=== PATIENT | female | born 1945 | race Caucasian/White ===

== ENCOUNTER → 2019-07-13 09:10 | Outpatient (BNVA) | payer MEDICARE, SELFPAY | PROVIDERS: Family Provider Nurse Practitioner; PCP Nurse Practitioner; Visit Provider Nurse Practitioner | DX: I10 Essential (primary) hypertension (principal); I69.30 Unspecified sequelae of cerebral infarction; E78.2 Mixed hyperlipidemia; L03.012 Cellulitis of left finger; M79.89 Other specified soft tissue disorders; M19.042 Primary osteoarthritis, left hand | CPT/HCPCS: 73130; 80053; 80061; 81003 ==

== ENCOUNTER 2019-07-22 10:12 | Outpatient (CLI) | payer MEDICARE, SELFPAY ==
[2019-07-22 10:55] LABS: Creatinine Urine, Random 61 mg/dL (28-217)
[2019-07-22 11:00] LABS: Microalbum Creatinine Ratio Ur 16 mg/dL (0-20)
[2019-07-22 11:01] LABS: Microalbumin Random Urine < 1 ug/dL (0-20)
== END 2019-07-22 10:13 | disposition home or self-care (01) ==
LOC: LAB 10:17
PROVIDERS: Family Provider Nurse Practitioner; PCP Nurse Practitioner; Visit Provider Internal Medicine Nephrology
DX: N18.3 Chronic kidney disease, stage 3 (moderate) (principal)
CPT/HCPCS: 82044

== ENCOUNTER → 2019-08-18 10:16 | Outpatient (BNVA) | payer MEDICARE, SELFPAY | PROVIDERS: Family Provider Nurse Practitioner; PCP Nurse Practitioner; Visit Provider Internal Medicine Nephrology | DX: N18.3 Chronic kidney disease, stage 3 (moderate) (principal) | CPT/HCPCS: 80069; 82310; 83970 ==

== ENCOUNTER → 2019-11-24 11:34 | Outpatient (BNVA) | payer MEDICARE, SELFPAY | PROVIDERS: Family Provider Nurse Practitioner; PCP Nurse Practitioner; Visit Provider Internal Medicine Nephrology | DX: N18.3 Chronic kidney disease, stage 3 (moderate) (principal) | CPT/HCPCS: 80069; 82044; 82310; 83970; 85025 ==

== ENCOUNTER → 2019-12-28 10:31 | Outpatient (BNVA) | payer MEDICARE, SELFPAY | PROVIDERS: Family Provider Nurse Practitioner; PCP Nurse Practitioner; Visit Provider Nurse Practitioner | DX: Z12.39 Encounter for other screening for malignant neoplasm of breast (principal); Z78.0 Asymptomatic menopausal state; I10 Essential (primary) hypertension; Z00.00 Encounter for general adult medical examination without abnormal findings; E78.2 Mixed hyperlipidemia; M15.0 Primary generalized (osteo)arthritis | CPT/HCPCS: 80053; 80061 ==

== ENCOUNTER 2020-02-09 12:49 | Outpatient (CLI) | payer MEDICARE, SELFPAY ==
--- NOTE | 2020-02-09 13:00 | MM_ITS ---
WS: [id number] SCREENING DIGITAL MAMMOGRAM WITH CAD HISTORY: Screening exam. COMPARISON: 10/17/2017, 04/08/2017 and 12/10/2005 Bilateral CC and MLO views submitted. Computer aided detection analyzed. Breast composition: There are scattered areas of fibroglandular density. Nodular asymmetry measuring 6 mm in the anterior LEFT breast behind the nipple. There are additional benign appearing calcifications. Inverted LEFT nipple is not a new finding. Benign calcification RIGH T breast. MM/[place] [id number] IMPRESSION: BI-RADS: 0-Incomplete: Need additional imaging evaluation FOLLOW UP: Need Additional Imaging LEFT breast: Spot compression views (CC and MLO). True ML. Ultrasound to follow if abnormality persists.
--- NOTE | 2020-02-09 13:46 | XR_ITS ---
WS: [id number] SCREENING DEXA SCAN [employer] CLINICAL INFORMATION: screen used prednisone in the past COMPARISON: None. FINDINGS: The L1-L4 bone mineral density measures 1.196 g/cm2. This corresponds to a T score score of 0.1 and Z score of 1.4. Left femoral neck bone mineral density measures 0.806 g/cm2. This corresponds to a T score of -1.6 an d Z score of -0.3. Right femoral neck bone mineral density measures 0.770 g/cm2. This corresponds to a T score -1.9of an d Z score of -0.6. Mean femoral neck bone mineral density measures 0.788 g/cm2. This corresponds to a T score of -1.7 an d Z score of -0.5. XR/XR DEXA axial skeleton* [id number] IMPRESSION: Osteopenia Patient's FRAX calculated 10 year probability for major osteoporotic fracture i s 14.1 % and osteoporotic hip fracture is 3.6%.
== END 2020-02-09 12:50 | disposition home or self-care (01) ==
LOC: RADSHAW 12:52
PROVIDERS: PCP Nurse Practitioner; Visit Provider Nurse Practitioner
DX: Z12.31 Encounter for screening mammogram for malignant neoplasm of breast (principal); Z78.0 Asymptomatic menopausal state; R92.1 Mammographic calcification found on diagnostic imaging of breast; M85.89 Other specified disorders of bone density and structure, multiple sites
CPT/HCPCS: 77067; 77080

== ENCOUNTER 2020-03-03 10:11 | Outpatient (CLI) | payer MEDICARE, SELFPAY ==
--- NOTE | 2020-03-03 10:30 | MM_ITS ---
WS: [id number] ADDITIONAL VIEWS LEFT MAMMOGRAM LEFT BREAST ULTRASOUND HISTORY: abnormal mammo COMPARISON: 02/09/2020 and 10/17/2017 LEFT MAMMOGRAM: Spot compression views and true ML. Asymmetries in the anterior LEFT breast become less apparent with additional spot compression views. Increased asymmetry persists in the LEFT MLO projection. Posterior to the nipple and ultrasound will be obtained. LEFT BREAST ULTRASOUND 2-D and color Doppler imaging submitted. Ultrasound directed posterior to the nipple. Patient has a known chronic nipple retraction. There are several dilated ducts posterior to the nipple. That may explain the abnormality seen on mammogram. T here are no solid masses. MM/[place] [id number] IMPRESSION: BI-RADS: 2-Benign FOLLOW UP: 1 Year Follow-up
--- NOTE | 2020-03-03 11:00 | US_ITS ---
WS: [id number] ADDITIONAL VIEWS LEFT MAMMOGRAM LEFT BREAST ULTRASOUND HISTORY: abnormal mammo COMPARISON: 02/09/2020 and 10/17/2017 LEFT MAMMOGRAM: Spot compression views and true ML. Asymmetries in the anterior LEFT breast become less apparent with additional spot compression views. Increased asymmetry persists in the LEFT MLO projection. Posterior to the nipple and ultrasound will be obtained. LEFT BREAST ULTRASOUND 2-D and color Doppler imaging submitted. Ultrasound directed posterior to the nipple. Patient has a known chronic nipple retraction. There are several dilated ducts posterior to the nipple. That may explain the abnormality seen on mammogram. T here are no solid masses. US/US breast LT limited* [id number] IMPRESSION: BI-RADS: 2-Benign FOLLOW UP: 1 Year Follow-up
== END 2020-03-03 10:12 | disposition home or self-care (01) ==
LOC: RADSHAW 10:16
PROVIDERS: PCP Nurse Practitioner; Visit Provider Nurse Practitioner
DX: R92.8 Other abnormal and inconclusive findings on diagnostic imaging of breast (principal); N64.9 Disorder of breast, unspecified
CPT/HCPCS: 76642; 77065

== ENCOUNTER → 2020-05-30 12:25 | Outpatient (BNVA) | payer MEDICARE, SELFPAY | PROVIDERS: PCP Nurse Practitioner; Visit Provider Nurse Practitioner | DX: I10 Essential (primary) hypertension (principal); E78.2 Mixed hyperlipidemia; I69.30 Unspecified sequelae of cerebral infarction | CPT/HCPCS: 80053; 85025 ==

== ENCOUNTER 2020-08-05 12:34 | Emergency (ER) | payer MEDICARE, SELFPAY ==
[2020-08-05 12:44] VITALS: BP 110/71; PULSE 57; RESP 15; TEMP 36.4; O2SAT 100; BMI 32.5
--- NOTE | 2020-08-05 12:46 | ECG_ITS ---
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: : 1945 Requested By: Anish Nielsen Order Number: [id number] Reading MD: TRINI VELA Measurements Intervals [place] Rate: 57 P: 60 TN: 160 QRS: -36 QRSD: 89 T: 12 QT: 431 QTc: 421 Interpretive Statements SINUS BRADYCARDIA LEFT AXIS DEVIATION [QRS AXIS < -30] MINIMAL VOLTAGE CRITERIA FOR LVH, CONSIDER NORMAL VARIANT [MEETS CRITERIA IN ONE OF: R(aVL), S(V1), R(V5), R(V5/V6)+S(V1)] No previous ECG available for comparison Electronically Signed On 08-05-2020 19:23:56 AUTOMOBILE SERVICE WRITER by TRINI VELA [id number]
--- NOTE | 2020-08-05 12:47 | XR_ITS ---
WS: [id number] Portable AP supine chest, 08/05/2020 Clinical Data: dyspnea/cough Comparison: None. Findings: No nodules, masses or effusions are seen. The heart is normal. The pulmonary vascularity is not increased. No pneumonia or pneumothorax is seen. The aortic arch and descending aorta show minim al calcification and tortuosity. XR/XR chest 1V portable [id number] Impression: Atherosclerosis.
--- NOTE | 2020-08-05 12:47 | CT_ITS ---
WS: [id number] CT HEAD TECHNIQUE: Noncontrast CT of the head obtained from the skullbase to the vertex. CLINICAL INFORMATION: trauma/LOC COMPARISON: None. DLP: 901.[address] scans at [facility] use at least one of these dose optimization techniques: automat ed exposure control; mA and/or kV adjustment per patient size (includes targeted exams where dose is matched to clinical indication); or iterative reconstruction. FINDINGS: Increased attenuation serpiginous subarachnoid hemorrhage involving the left greater than right front al lobes extending into the sulci on the left. No significant mass effect or midline shift. No intrav entricular hemorrhage. No visualized extra-axial fluid collections. Chronic lacunar infarct in the lina. No visualized calvarial fractures. Opacification left maxillary sinus with inspissated secretions. Mastoid air cells and right maxillary sinus are well aerated. CT/CT head wo con* [id number] IMPRESSION: 1. Small amount of bilateral frontal subarachnoid hemorrhage left greater than right extending into the sulci left frontal lobe. No significant mass effect o r midline shift. 2. No hydrocephalus. No intraventricular hemorrhage. 3. No extra-axial fluid collections. 4. No calvarial fractures. Notified Anish Prabhakar DO at 08/05/2020 1:27 PM.
--- NOTE | 2020-08-05 12:53 | PC.NURSE ---
C-collar placed on Pt during triage assessment
--- NOTE | 2020-08-05 12:56 | CT_ITS ---
WS: [id number] CT CERVICAL TRAUMA TECHNIQUE: Noncontrast CT of the cervical spine with coronal and sagittal reformatted images. CLINICAL INFORMATION: pain after fall COMPARISON: None. DLP: 598.[address] scans at [facility] use at least one of these dose optimization techniques: automat ed exposure control; mA and/or kV adjustment per patient size (includes targeted exams where dose is matched to clinical indication); or iterative reconstruction. FINDINGS: Nondisplaced right second rib fracture at the costovertebral junction. Moderate spondylitic changes. Slight anterolisthesis C5 on C6. Disc space narrowing mid cervical spin e worse at C4-C5 C6-C7 and C7-T1. Straightening of the normal cervical lordosis. Normal craniocervical junction. Normal C1-C2 articulat ion. Dens is normal in appearance. Normal occipital condyles. No high-grade spinal canal narrowing. N ormal C1 ring. Normal prevertebral soft tissues. Mastoids air cells are well aerated. CT/CT cervical spin wo con* [id number] IMPRESSION: 1. Nondisplaced right second rib fracture at the costovertebral junction. 2. No other visualized fractures.
--- NOTE | 2020-08-05 12:56 | XR_ITS ---
WS: [id number] Right shoulder, 3 views, 08/05/2020 Clinical Data: pain Comparison: None. Findings: No fractures or dislocations are seen. There is osteoarthritic change of the inferior right glenoid r im. The AC joint is normal. The adjacent right clavicle, right scapula and ribs are normal. The soft tissues are unremarkable. There is elevation of the right humeral head and it lies adjacent to the acromion process. This can b e seen with a torn rotator cuff. XR/XR shoulder RT min 2V* [id number] Impression: 1. Moderate osteoarthritis of the right shoulder. 2. Elevation of the right humeral head which can be seen with a torn rotator cu ff.
--- NOTE | 2020-08-05 12:56 | CT_ITS ---
WS: [id number] CT LUMBAR SPINE TECHNIQUE: Noncontrast CT of the lumbar spine with coronal and sagittal reformatted images. CLINICAL INFORMATION: pain COMPARISON: None. DLP: 1743.[address] scans at [facility] use at least one of these dose optimization techniques: automat ed exposure control; mA and/or kV adjustment per patient size (includes targeted exams where dose is matched to clinical indication); or iterative reconstruction. FINDINGS: Lumbar curve convex right. No acute compression fractures. Advanced degenerative disc disease through out the lumbar spine with multilevel disc space narrowing. Grade 1 anterolisthesis L4 on L5. Moderate to severe central canal stenosis L3-L4 and L4-L5 due to disc bulging with facet arthropathy ligament flavum hypertrophy. Advanced facet arthropathy lower lumbar spine. Normal transverse processes. Normal visualized abdomin al aorta. Peripelvic left renal cyst. CT/CT lumbar spine wo con* [id number] IMPRESSION: 1. Mild lumbar curve. No acute compression. Multilevel degenerative disc disea se. 2. Grade 1 anterolisthesis L4 on L5. 3. Moderate to severe central canal stenosis L3-L4 L4-L5 due to disc bulging w ith facet arthropathy and ligamentum flavum hypertrophy. 4. No visualized acute fractures. Attempted notification Anish Prabhakar DO at 08/05/2020 1:48 PM. .
--- NOTE | 2020-08-05 12:56 | XR_ITS ---
WS: [id number] Thoracic spine, 3 views, 08/05/2020 Clinical Data: pain Comparison: None. Findings: No compression fractures are seen. The disc heights are normal. There is osteoarthritis of all the thoracic vertebral bodies. There is a levoscoliosis of the lower t horacic spine. The paravertebral regions are not remarkable. XR/XR thoracic spine 3V* [id number] Impression: Osteoarthritis of the thoracic vertebral bodies and lower thoracic levoscoliosi s.
--- NOTE | 2020-08-05 13:25 | ED_ITS ---
HPI - Fall General: Chief Complaint: Fall Stated Complaint: fall down stairs, LOC, head injury Time Seen by Provider: 08/05/20 12:36 History of Present Illness: HPI Narrative: 75-year-old female presents to the emergency room from home. She relates having fallen down stairs about 4-[address] and hit her head. She thought she had stumbled although she cannot recall being entire events fully. She was unconscious for an unknown length of time 3 years ago the patient had a CVA. She has significant bruising on the left frontal scalp. She is otherwise awake and alert and gives a good history she denies any vomiting since episodes not had any chest pain. MD complaint: fall Onset (ago): minute(s) Fall from: standing and down stairs (#) (4-5) Fall witnessed: no Place fall occurred: home Loss of consciousness: Yes Length of LOC: minutes(s) Prolonged down time: minute(s) Symptoms prior to fall: none Location of injury: head, neck and back Severity: moderate Associated symptoms-after fall: Denies abdominal pain, chest pain, confusion, difficulty walking, headache(s), hematuria, lightheadedness, neck pain, numbness, short of breath, vertigo or weakness Review of Systems Const: Denies: fever(s), chills, body aches, change in appetite, fatigue or malaise ENMT: Denies: throat pain, ear or mastoid pain, nasal discharge or nasal michele estion Card: Denies: chest pain or lightheadedness Resp: Denies: dyspnea, productive cough or non-productive cough GI: Denies: abdominal pain : Denies: hematuria Musc: Denies: neck pain Skin/Breast: Denies: rash or pruritus Neuro: Denies: headache(s), difficulty walking, vertigo or confusion PFS ED PFSH: Medical History DDD (degenerative disc disease), lumbar History of cerebrovascular accident (CVA) with residual deficit Hypertension Mixed hyperlipidemia Osteoarthritis Renal insufficiency Surgical History History of cataract surgery bilateral History of colonoscopy 2018 History of corneal transplant Bilateral History of knee replacement Left knee 2009 History of tubal ligation Family History Other Heart disease Hypertension Social History Smoking and tobacco status: never smoked Second hand smoke exposure: No Smoking risk assessment/counseling performed?: No Alcohol intake: never Desire information about alcohol rehabilitation?: No Counseling given: No Desire information about substance/drug rehabilitation?: No Counseling given: No Caregiver/support person: No Lives independently: Yes Housing: House Marital status: History of recent travel: No Current gender identity: Female Physical Exam Const: COMMON NORMALS: no acute distress GENERAL APPEARANCE: cooperative and comfortable ORIENTATION/CONSCIOUSNESS: Yes awake, Yes oriented to person, Yes oriented to place and Yes oriented to time HENMT: COMMON NORMALS: normocephalic and hearing grossly normal bilaterally HEAD & SCALP: normocephalic OTHER: Significant ecchymosis over the right forehead. Eye: COMMON NORMALS: Equal, round and reactive pupils present, EOMs intact bilaterally, conjunctivae normal and no scleral icterus CONJUNCTIVA: Yes conjunctivae normal PUPIL: Yes Equal, round and reactive pupils present Neck/C-Spine: COMMON NORMALS: no JVD Lymph: LYMPHATIC: no lymphadenopathy noted and no lymphedema noted Resp: COMMON NORMALS: normal respiratory effort, No retractions, No use of accessory muscles and clear to auscultation bilaterally AUSCULTATION: clear to auscultation bilaterally Cardio: COMMON NORMALS: no JVD, regular rate, regular rhythm and No murmurs present (Cardio) RATE: regular rate RHYTHM: regular rhythm GI: COMMON NORMALS: Soft to palpation and No hepatosplenomegaly present AUSCULTATION: Yes normoactive bowel sounds PALPATION: Yes Soft to palpation, No Tenderness to palpation present (GI), No Guarding due to palpation present (GI) and Yes No hepatosplenomegaly present Extremity: COMMON NORMALS: normal to inspection, capillary refill normal, no clubbing, cyanosis or edema, no calf tenderness and no pedal edema Neuro: SENSORIUM/ORIENTATION: Yes oriented to person, Yes oriented to place and Yes oriented to time Skin: COMMON NORMALS: no rashes or lesions noted GENERAL SKIN EXAM: no rashes or lesions noted Course Vital Signs: Vital signs: Vital Signs Temperature 97.6 F 08/05/20 12:44 Pulse Rate 57 L 08/05/20 12:44 Respiratory Rate 15 08/05/20 12:44 Blood Pressure 110/71 08/05/20 12:44 Pulse Oximetry 100 08/05/20 12:44 MDM - Fall MDM Narrative: Medical decision making narrative: Suspect patient had a spontaneous subarachnoid which precipitated the fall. In either event she does currently have a subarachnoid to have to be transferred since we do not have neurosurgery available at our facility. Also concerning the first rib fracture with the fall represents significant trauma. Discussed with the patient the family they are agreeable transfer to [facility] at their request have discussed with the ER doc and do an ER to ER transfer. Discharge Plan Discharge Patient Disposition: Transfer to ED Clinical Impression: Subarachnoid hemorrhage, Fracture of one rib of right side Condition: Stable Prescriptions: No Action aspirin 325 mg tablet 325 mg PO DAILY RF: 0 fluorometholone 0.1 % drops,suspension 1 drop ophthalmic (eye) Q6H RF: 0 lidocaine 5 % adhesive patch,medicated 1 patch TOPICAL DAILY RF: 0 aspirin [Aspirin Childrens] 81 mg tablet,chewable 81 mg PO DAILY RF: 0 mupirocin 2 % ointment 1 applic TOPICAL TID PRN (Reason: infection) Qty: 22 RF: 0 amlodipine 2.5 mg tablet 2.5 mg PO DAILY Qty: 90 RF: 0 valsartan [Diovan] 320 mg tablet 320 mg PO DAILY Qty: 90 RF: 0 metoprolol succinate [Toprol XL] 50 mg tablet extended release 24 hr 50 mg PO DAILY Qty: 90 RF: 0 atorvastatin [Lipitor] 20 mg tablet 20 mg PO DAILY Qty: 90 RF: 1 citalopram 20 mg tablet 20 mg PO DAILY Qty: 90 RF: 1 furosemide [Lasix] 20 mg tablet 20 mg PO DAILY Qty: 90 RF: 1 Referrals: Ted Rosario FNP-C [Primary Care Provider] - Coding Level of Care Code ED Secure Software Assessor for Farooq Appiah
[2020-08-05] MEDS: ondansetron 2 mg/ML SDV 2 mL 4 MG IVP (13:42)
[2020-08-05 14:44] LABS: Basophils % 0.3 %; Eosinophils # 0.1 10^3/uL (0.0-0.8); Eosinophils % 0.7 %; Hemoglobin 12.1 g/dL (11.5-15.3); Lymphocytes # 0.8 10^3/uL (0.8-4.8); Lymphocytes % 5.7 %; Mean Corpuscular HGB Conc 32.7 g/dL (30.0-36.0); Mean Corpuscular Hemoglobin 33.7 pg (28.0-34.0); Mean Corpuscular Volume 103.1 fL (81-99); Mean Platelet Volume 8.8 fL (7.4-10.4); Monocytes # 0.7 10^3/uL (0.2-0.9); Monocytes % 5.2 %; Neutrophils # 12.19 10^3/uL (1.8-7.7); Neutrophils % 87.7 %; Nucleated Red Blood Cells % 0 %; Platelet Count 192 10^3/cmm (130-400); Red Blood Count 3.59 10^6/uL (4.1-5.3); Red Cell Distribution Width 12.6 % (12.1-15.1); White Blood Count 13.9 10^3/uL (4.0-10.0)
[2020-08-05 14:52] LABS: Ketone (Acetest) Serum Negative (Negative)
[2020-08-05 14:57] VITALS: BP 112/64; PULSE 55; RESP 18; O2SAT 98
[2020-08-05 14:59] LABS: Lactic Sepsis W/Reflex 1.7 mmol/L (0.5-2.2)
[2020-08-05 15:00] LABS: Alanine Aminotransferase 35 U/L (0-33); Albumin Level 4.1 g/dL (3.5-5.2); Alkaline Phosphatase 69 IU/L (35-105); Anion Gap 15.7 (5-19); Aspartate Amino Transferase 59 U/L (0-32); Blood Urea Nitrogen 22 mg/dL (8-23); Calcium 8.4 mg/dL (8.5-10.5); Carbon Dioxide 23 mmol/L (22-29); Chloride 101 mmol/L (98-107); Globulin 2.7 g/dL (1.3-4.6); Glucose 113 mg/dL (65-115); Osmolality Calculated 284 mOsm/kg (285-295); Potassium 4.7 mmol/L (3.5-5.1); Sodium 135 mmol/L (136-145); Total Bilirubin 0.5 mg/dL (0.15-1.2); Total Protein 6.8 g/dL (6.6-8.7)
[2020-08-05 15:02] LABS: Creatine Phosphokinase 1184 U/L (26-192)
[2020-08-05] MEDS: morphine 4 mg/mL SDV 1 mL IVP (15:05)
[2020-08-05 15:25] VITALS: BP 112/64; PULSE 55; RESP 18; O2SAT 98
[2020-08-05 15:27] LABS: Add Urine Microscopic? YES; Bilirubin Urine Neg (Negative); Blood Urine 2+ (Negative); Glucose Urine UA Norm (Normal); Ketones Urine Negative (Negative); Leukocyte Esterase Urine Negative (Negative); Nitrate Urine Negative (Negative); Protein Urine Neg (Negative); Urine Appearance Hazy (CLEAR); Urine Color Yellow (Yellow); Urobilinogen Urine Norm (Negative); pH Urine 5 (5-7)
[2020-08-05 15:50] LABS: RBC Urine 0-4 /hpf (0-2); WBC Urine 0-4 /hpf (0-5)
[2020-08-05 15:51] LABS: Add Urine Culture? No; Amorphous Sediment Urine TRACE /hpf; Bacteria Urine 1+ /hpf; Coarse Granular Casts Urine 0-4 /lpf; Hyaline Casts Urine 25-40 /lpf; Mucus Urine 2+ /hpf; Squamous Epithelial Cell Urine 0-4 /hpf (0-5)
== END 2020-08-05 15:26 ==
PROVIDERS: Emergency Provider Family Medicine; PCP Nurse Practitioner
DX: S06.6X9A Traumatic subarachnoid hemorrhage with loss of consciousness of unspecified duration, initial encounter (principal); S22.31XA Fracture of one rib, right side, initial encounter for closed fracture; W10.8XXA Fall (on) (from) other stairs and steps, initial encounter; Z79.82 Long term (current) use of aspirin; Z86.73 Personal history of transient ischemic attack (TIA), and cerebral infarction without residual deficits; I10 Essential (primary) hypertension; E78.5 Hyperlipidemia, unspecified; E78.2 Mixed hyperlipidemia
CPT/HCPCS: 70450; 71045; 72072; 72125; 72131; 73030; 80053; 81001; 82009; 82550; 83605; 85025; 93005; 96374; 96375; 99285; J2270; J2405

== ENCOUNTER → 2020-09-05 11:26 | Outpatient (BNVA) | payer MEDICARE, SELFPAY | PROVIDERS: PCP Nurse Practitioner; Visit Provider Nurse Practitioner | DX: I10 Essential (primary) hypertension (principal) | CPT/HCPCS: 80053; 85025 ==

== ENCOUNTER → 2020-11-22 08:27 | Outpatient (BNVA) | payer MEDICARE, SELFPAY | PROVIDERS: PCP Nurse Practitioner; Visit Provider Nurse Practitioner | DX: E78.2 Mixed hyperlipidemia (principal); I69.30 Unspecified sequelae of cerebral infarction; I10 Essential (primary) hypertension; E55.9 Vitamin D deficiency, unspecified | CPT/HCPCS: 80053; 80061; 82306; 82607; 84443 ==

== ENCOUNTER → 2021-04-13 09:40 | Outpatient (BNVA) | payer MEDICARE, SELFPAY | PROVIDERS: PCP Nurse Practitioner; Visit Provider Nurse Practitioner | DX: I10 Essential (primary) hypertension (principal) | CPT/HCPCS: 80053; 80061; 84443 ==

== ENCOUNTER 2021-07-10 07:04 | Outpatient (CLI) | payer MEDICARE, SELFPAY ==
--- NOTE | 2021-07-10 07:30 | MM_ITS ---
WS: [id number] BILATERAL DIGITAL SCREENING MAMMOGRAPHY WITH CAD CLINICAL INFORMATION: Z12.39 - Encounter for other screening for malignant neop... HISTORY: Screening mammogram. No current complaints. COMPARISON: February 09, 2020 TECHNIQUE: Bilateral CC and MLO views. FINDINGS: LEFT nipple inversion Scattered fibroglandular densities bilaterally. Stable punctate and secretory calcifications. Asymmet melisa densities about the areola are unchanged from previous studies. Ductal ectasia. No suspicious foc al mass, asymmetry, calcifications, or architectural distortion. No evidence of malignancy. MM/[place] [id number] IMPRESSION: BI-RADS: 2-Benign FOLLOW UP: 1 Year Follow-up Recommend return to annual screening mammography.
== END 2021-07-10 07:05 | disposition home or self-care (01) ==
LOC: RADSHAW 07:05
PROVIDERS: PCP Nurse Practitioner; Visit Provider Nurse Practitioner
DX: Z12.31 Encounter for screening mammogram for malignant neoplasm of breast (principal)
CPT/HCPCS: 77067

== ENCOUNTER → 2021-10-11 08:37 | Outpatient (BNVA) | payer MEDICARE, SELFPAY | PROVIDERS: PCP Nurse Practitioner; Visit Provider Nurse Practitioner | DX: E03.9 Hypothyroidism, unspecified (principal); I10 Essential (primary) hypertension; E55.9 Vitamin D deficiency, unspecified; E53.8 Deficiency of other specified B group vitamins | CPT/HCPCS: 80053; 80061; 82306; 82607; 84443; 85025 ==

== ENCOUNTER → 2022-04-05 08:32 | Outpatient (BNVA) | payer MEDICARE, SELFPAY | PROVIDERS: PCP Nurse Practitioner; Visit Provider Nurse Practitioner | DX: I10 Essential (primary) hypertension (principal); E78.2 Mixed hyperlipidemia; I69.30 Unspecified sequelae of cerebral infarction; E03.9 Hypothyroidism, unspecified; E55.9 Vitamin D deficiency, unspecified | CPT/HCPCS: 80053; 80061; 81000; 84443; 85025 ==

== ENCOUNTER 2022-07-19 09:45 | Outpatient (CLI) | payer MEDICARE, SELFPAY ==
--- NOTE | 2022-07-19 09:52 | MM_ITS ---
WS: [id number] BILATERAL SCREENING DIGITAL TOMOSYNTHESIS MAMMOGRAM WITH CAD HISTORY: SCREENING COMPARISON: 07/10/2021, 02/09/2020 and 10/17/2017 Bilateral CC and MLO views with tomosynthesis and synthetic mammography submitted. Computer aided det ection analyzed. Breast composition: There are scattered areas of fibroglandular density. No suspicious masses, microc alcifications or architectural distortion. Benign calcifications in each breast are stable. There is an asymmetry posterior to the LEFT nipple which has been present on multiple prior studies with no ch christina. MM/[place] [id number] IMPRESSION: BI-RADS: 2-Benign FOLLOW UP: 1 Year Follow-up
== END 2022-07-19 09:46 | disposition home or self-care (01) ==
LOC: RAD 09:47
PROVIDERS: PCP Nurse Practitioner; Visit Provider Nurse Practitioner
DX: Z12.31 Encounter for screening mammogram for malignant neoplasm of breast (principal)
CPT/HCPCS: 77063; 77067

== ENCOUNTER → 2022-10-18 09:08 | Outpatient (BNVA) | payer MEDICARE, SELFPAY | PROVIDERS: PCP Nurse Practitioner; Visit Provider Nurse Practitioner | DX: I10 Essential (primary) hypertension (principal); E55.9 Vitamin D deficiency, unspecified | CPT/HCPCS: 80053; 80061; 82306; 82607; 84443 ==

== ENCOUNTER → 2023-04-08 09:57 | Outpatient (BNVA) | payer MEDICARE, SELFPAY | PROVIDERS: PCP Nurse Practitioner; Visit Provider Nurse Practitioner | DX: E03.9 Hypothyroidism, unspecified (principal); I10 Essential (primary) hypertension | CPT/HCPCS: 80053; 80061; 84443 ==

== ENCOUNTER → 2023-06-19 10:24 | Outpatient (BNVA) | payer MEDICARE, SELFPAY | PROVIDERS: PCP Nurse Practitioner; Visit Provider Nurse Practitioner | DX: K92.1 Melena (principal) | CPT/HCPCS: 85025 ==

== ENCOUNTER → 2023-09-18 10:11 | Outpatient (BNVA) | payer MEDICARE, SELFPAY | PROVIDERS: PCP Nurse Practitioner; Visit Provider Nurse Practitioner | DX: E03.9 Hypothyroidism, unspecified (principal); E53.8 Deficiency of other specified B group vitamins; E55.9 Vitamin D deficiency, unspecified; E78.2 Mixed hyperlipidemia | CPT/HCPCS: 80053; 80061; 82306; 82607; 84443 ==

== ENCOUNTER 2023-09-24 10:45 | Outpatient (CLI) | payer MEDICARE, SELFPAY ==
--- NOTE | 2023-09-24 11:00 | MM_ITS ---
WS: [id number] BILATERAL SCREENING DIGITAL TOMOSYNTHESIS MAMMOGRAM WITH CAD HISTORY: Z12.31 - Encounter for screening mammogram for malignant ... COMPARISON: 07/19/2022, 07/10/2021 Bilateral CC and MLO views with tomosynthesis and synthetic mammography submitted. Computer aided det ection analyzed. Breast composition: There are scattered areas of fibroglandular density. No suspicious masses, microc alcifications or architectural distortion. Numerous benign-appearing calcifications are noted in the central lateral LEFT breast. Additional benign calcifications in each breast. MM/[place] [id number] IMPRESSION: BI-RADS: 2-Benign FOLLOW UP: 1 Year Follow-up
== END 2023-09-24 10:46 | disposition home or self-care (01) ==
LOC: RAD 10:45
PROVIDERS: PCP Nurse Practitioner; Visit Provider Nurse Practitioner
DX: Z12.31 Encounter for screening mammogram for malignant neoplasm of breast (principal); R92.323 Mammographic fibroglandular density, bilateral breasts; R92.8 Other abnormal and inconclusive findings on diagnostic imaging of breast
CPT/HCPCS: 77063; 77067

== ENCOUNTER → 2024-03-18 08:17 | Outpatient (BNVA) | payer MEDICARE, SELFPAY | PROVIDERS: PCP Nurse Practitioner; Visit Provider Nurse Practitioner | DX: I10 Essential (primary) hypertension (principal); E03.9 Hypothyroidism, unspecified | CPT/HCPCS: 80053; 80061; 84443 ==

== ENCOUNTER → 2024-08-20 09:53 | Outpatient (BNVA) | payer MEDICARE, SELFPAY | PROVIDERS: PCP Nurse Practitioner; Visit Provider Nurse Practitioner | DX: I10 Essential (primary) hypertension (principal); E03.9 Hypothyroidism, unspecified | CPT/HCPCS: 80053; 80061; 84443 ==

== ENCOUNTER 2024-09-25 11:06 | Outpatient (CLI) | payer MEDICARE, SELFPAY ==
--- NOTE | 2024-09-25 11:20 | MM_ITS ---
WS: [id number] BILATERAL 3D TOMOSYNTHESIS DIGITAL SCREENING MAMMOGRAPHY WITH CAD CLINICAL INFORMATION: Z12.31 - Encounter for screening mammogram for malignant ... HISTORY: Screening mammogram. No current complaints. COMPARISON: 2023 TECHNIQUE: Bilateral CC and MLO views. FINDINGS: Scattered fibroglandular densities bilaterally. No suspicious focal mass, asymmetry, calcifications, or architectural distortion. No evidence of malignancy. Incidental benign calcifications. MM/MM scr tomosynthesis [id number] IMPRESSION: DENSITY: There are scattered areas of fibroglandular density. BI-RADS: 2 - Benign. FOLLOW UP: 1 Year Follow-up Recommend return to annual screening mammography.
== END 2024-09-25 11:07 | disposition home or self-care (01) ==
LOC: RAD 11:08
PROVIDERS: PCP Nurse Practitioner; Visit Provider Nurse Practitioner
DX: Z12.31 Encounter for screening mammogram for malignant neoplasm of breast (principal); R92.323 Mammographic fibroglandular density, bilateral breasts; R92.1 Mammographic calcification found on diagnostic imaging of breast
CPT/HCPCS: 77063; 77067

== ENCOUNTER → 2024-11-03 13:28 | Outpatient (BNVA) | payer MEDICARE, SELFPAY | PROVIDERS: PCP Nurse Practitioner; Visit Provider Nurse Practitioner | DX: M25.522 Pain in left elbow (principal); M19.042 Primary osteoarthritis, left hand | CPT/HCPCS: 73080; 73110 ==

== ENCOUNTER → 2025-03-02 11:12 | Outpatient (BNVA) | payer MEDICARE, SELFPAY | PROVIDERS: PCP Nurse Practitioner; Visit Provider Nurse Practitioner | DX: I10 Essential (primary) hypertension (principal); E55.9 Vitamin D deficiency, unspecified; E53.8 Deficiency of other specified B group vitamins | CPT/HCPCS: 80053; 80061; 82306; 82607; 84443 ==